=== PATIENT | female | born 1965 | race Caucasian/White ===

== ENCOUNTER 2023-03-18 02:46 | Emergency (ER) | payer OTHER ==
[~2023-03-18] VITALS: Ht 157.5 cm; Wt 62.6 kg
[~2023-03-18 02:46] MED LIST: ATENOLOL25 GM; KETO10TA2 PO; LIPITOR20 MG; SEPTRA DS TABLE1 TAB PO; SYNTHROID125 MCG; TAMSULOSIN HCL0.4 MG PO
[2023-03-18] MEDS ORDERED: TENORMIN25 MG PO (03:16)
[2023-03-18] MEDS ORDERED: TAMS0.4C PO ×2 (06:39→06:40)
[2023-03-18] MEDS ORDERED: KETO10TA2 PO (06:39)
== END 2023-03-18 06:46 ==
LOC: ER 02:46
DX: R10.9 Unspecified abdominal pain (principal); Z87.442 Personal history of urinary calculi; Z88.2 Allergy status to sulfonamides; Z88.0 Allergy status to penicillin; N20.1 Calculus of ureter